=== PATIENT | female | born 1965 | race Caucasian/White ===

== ENCOUNTER 2017-01-17 14:06 | Emergency (ER) | payer BC ==
[~2017-01-17] VITALS: Ht 162.6 cm; Wt 76.4 kg
[2017-01-17] MEDS ORDERED: ADDERALL XR30 MG PO (14:13)
[2017-01-17] MEDS ORDERED: SEPTRA DS 8001 TAB PO (18:12)
[2017-01-17] MEDS ORDERED: FLOMAX0.4 MG PO (18:12)
[2017-01-17] MEDS ORDERED: NORCO 325 MG-51 TAB PO (18:12)
[2017-01-17 18:32] VITALS: BP 136/79
== END 2017-01-17 18:30 | disposition home or self-care (01) ==
LOC: ED 14:06
DX: N20.1 Calculus of ureter (principal); Z87.442 Personal history of urinary calculi; N39.0 Urinary tract infection, site not specified

== ENCOUNTER → 2017-09-21 | Outpatient (CLI) | payer BC ==
[~2017-09-21] MED LIST: ADDERALL XR30 MG PO; FLOMAX0.4 MG PO; NORCO 325 MG-51 TAB PO; SEPTRA DS 8001 TAB PO
[2017-09-21 14:55] LABS: ALBUMIN 4.3 g/dL (3.5-5.0); BUN/CREATININE RATIO 10.3 (6.0-26.0); CALCIUM 9.6 mg/dL (8.4-10.2); POTASSIUM 3.7 mmol/L (3.6-5.0); TOTAL BILIRUBIN 0.3 mg/dL (0.2-1.3); TOTAL PROTEIN 8.1 g/dL (6.3-8.2)
[2017-09-21 15:53] LABS: BASO # 0.1 (0.02-0.10); EOS # 0.2 (0.04-0.40); EOS % 1.7 % (1.0-5.0); HEMATOCRIT 44.1 % (37.0-47.0); HEMOGLOBIN 14.9 g/dL (12.5-16.0); LYMPH# 4.2 (1.50-4.00); MEAN CELL VOLUME 96 fl (78-100); MEAN CORPUSCULAR HEMOGLOBIN 32 pg (27-31); MEAN CORPUSCULAR HGB CONC 34 g/dL (33-37); MEAN PLATELET VOLUME 11.9 fl (7.4-10.4); NEU # 6.9 (1.40-6.50); PLATELET COUNT 273 K/mm3 (130-400); RED BLOOD COUNT 4.61 M/mm3 (4.10-5.30); WHITE BLOOD COUNT 12.4 K/mm3 (4.8-10.8)
[2017-09-21 18:22] LABS: ERYTHROCYTE SEDIMENTATION RATE 7 mm/hr (0-20)
== END ==
LOC: LAB 14:25
PROVIDERS: Internal Medicine
DX: Z00.00 Encounter for general adult medical examination without abnormal findings (principal); Z12.11 Encounter for screening for malignant neoplasm of colon; Z88.1 Allergy status to other antibiotic agents; Z88.0 Allergy status to penicillin

== ENCOUNTER → 2019-04-13 | Outpatient (CLI) | payer BC ==
[2019-04-13 12:43] LABS: EOS # 0.1 (0.04-0.40); EOS % 0.8 % (1.0-5.0); HEMATOCRIT 45.7 % (37.0-47.0); HEMOGLOBIN 15.2 g/dL (12.5-16.0); LYMPH# 2.3 (1.50-4.00); MEAN CELL VOLUME 96 fl (78-100); MEAN CORPUSCULAR HEMOGLOBIN 32 pg (27-31); MEAN CORPUSCULAR HGB CONC 33 g/dL (33-37); MEAN PLATELET VOLUME 10.9 fl (7.4-10.4); MONO # 0.7 (0.20-0.80); PLATELET COUNT 289 K/mm3 (130-400); RED BLOOD COUNT 4.78 M/mm3 (4.10-5.30); RED CELL DISTRIBUTION WIDTH 13.2 % (11.5-14.5); WHITE BLOOD COUNT 13.2 K/mm3 (4.8-10.8)
[2019-04-13 12:55] LABS: ALBUMIN 4.2 g/dL (3.5-5.0); POTASSIUM 3.9 mmol/L (3.5-5.1)
[2019-04-13 12:56] LABS: CALCIUM 9.5 mg/dL (8.3-10.5)
[2019-04-13 12:57] LABS: TOTAL PROTEIN 7.6 g/dL (6.4-8.3)
[2019-04-13 12:59] LABS: TOTAL BILIRUBIN 0.5 mg/dL (0.2-1.2)
[2019-04-13 13:47] LABS: ERYTHROCYTE SEDIMENTATION RATE 8 mm/hr (0-30)
== END ==
LOC: LAB 12:28
PROVIDERS: Internal Medicine
DX: Z00.00 Encounter for general adult medical examination without abnormal findings (principal); Z12.11 Encounter for screening for malignant neoplasm of colon; K90.89 Other intestinal malabsorption

== ENCOUNTER → 2021-04-24 | Outpatient (CLI) | payer BC ==
[2021-04-24 15:30] LABS: BASO # 0.06 K/mm3 (0.02-0.10); EOS # 0.18 K/mm3 (0.04-0.40); EOS % 1.6 % (1.0-5.0); HEMATOCRIT 46.5 % (37.0-47.0); HEMOGLOBIN 15.7 g/dL (12.5-16.0); LYMPH# 4.08 K/mm3 (1.50-4.00); MEAN CELL VOLUME 97 fl (78-100); MEAN CORPUSCULAR HEMOGLOBIN 33 pg (27-31); MEAN CORPUSCULAR HGB CONC 34 g/dL (33-37); MEAN PLATELET VOLUME 10.7 fl (7.4-10.4); MONO # 0.69 K/mm3 (0.20-0.80); NEU # 5.97 K/mm3 (1.40-6.50); PLATELET COUNT 268 K/mm3 (130-400); RED BLOOD COUNT 4.81 M/mm3 (4.10-5.30); RED CELL DISTRIBUTION WIDTH 12.9 % (11.5-14.5)
[2021-04-24 15:36] LABS: ALBUMIN 4.1 g/dL (3.5-5.0); POTASSIUM 4.5 mmol/L (3.5-5.1)
[2021-04-24 15:38] LABS: TOTAL PROTEIN 7.4 g/dL (6.4-8.3)
[2021-04-24 15:40] LABS: TOTAL BILIRUBIN 0.4 mg/dL (0.2-1.2)
[2021-04-24 15:49] LABS: PH-URINE 5.5 (5.0 - 8.0); URINE APPEARANCE HAZY; URINE BILIRUBIN NEGATIVE (NEGATIVE); URINE COLOR YELLOW; URINE GLUCOSE NEGATIVE (NEGATIVE); URINE KETONE NEGATIVE (NEGATIVE); URINE NITRATE NEGATIVE (NEGATIVE); URINE PROTEIN(semi-quant) TRACE mg/dL (NEGATIVE); URINE UROBILINOGEN NORMAL (NORMAL)
[2021-04-24 15:50] LABS: URINE BLOOD TRACE (NEGATIVE); URINE LEUKOCYTE ESTERASE 1+ (NEGATIVE); URINE WBC 16-30 /hpf (0-3)
== END ==
LOC: LAB 14:49
PROVIDERS: Internal Medicine
DX: Z00.00 Encounter for general adult medical examination without abnormal findings (principal)

== ENCOUNTER → 2023-03-30 | Outpatient (CLI) | payer BC ==
[2023-03-30 11:27] LABS: BASO # 0.04 K/mm3 (0.02-0.10); EOS # 0.14 K/mm3 (0.04-0.40); HEMATOCRIT 44.4 % (37.0-47.0); HEMOGLOBIN 14.9 g/dL (12.5-16.0); LYMPH# 4.35 K/mm3 (1.50-4.00); MEAN CELL VOLUME 97 fl (78-100); MEAN CORPUSCULAR HEMOGLOBIN 33 pg (27-31); MEAN CORPUSCULAR HGB CONC 34 g/dL (33-37); MEAN PLATELET VOLUME 10.3 fl (7.4-10.4); MONO # 0.86 K/mm3 (0.20-0.80); NEU # 8.94 K/mm3 (1.40-6.50); PLATELET COUNT 302 K/mm3 (130-400); RED BLOOD COUNT 4.57 M/mm3 (4.10-5.30); WHITE BLOOD COUNT 14.4 K/mm3 (4.8-10.8)
[2023-03-30 11:36] LABS: POTASSIUM 3.6 mmol/L (3.5-5.1)
[2023-03-30 11:37] LABS: CALCIUM 9.6 mg/dL (8.3-10.5)
[2023-03-30 11:39] LABS: TOTAL PROTEIN 7.6 g/dL (6.4-8.3)
[2023-03-30 11:41] LABS: TOTAL BILIRUBIN 0.3 mg/dL (0.2-1.2)
[2023-03-30 13:02] LABS: ERYTHROCYTE SEDIMENTATION RATE 13 mm/hr (0-30)
[2023-03-30 22:13] LABS: PTH,INTACT 52.2 pg/mL (6.6-88.9)
[2023-03-30 22:58] LABS: CALCIUM, IONIZED, SERUM 1.15 mmol/L (1.19-1.41)
== END ==
LOC: LAB 10:36
PROVIDERS: Internal Medicine
DX: Z00.00 Encounter for general adult medical examination without abnormal findings (principal); M85.80 Other specified disorders of bone density and structure, unspecified site; J45.20 Mild intermittent asthma, uncomplicated; Q61.5 Medullary cystic kidney; N13.9 Obstructive and reflux uropathy, unspecified; F90.0 Attention-deficit hyperactivity disorder, predominantly inattentive type; B37.0 Candidal stomatitis; A41.50 Gram-negative sepsis, unspecified